=== PATIENT | female | born 1965 | race Two or more races ===

== ENCOUNTER 2025-01-09 10:04 | Emergency (ER) | payer MEDICAID ==
[~2025-01-09] VITALS: Ht 162.6 cm; Wt 77.0 kg
[2025-01-09 10:06] VITALS: BP 162/96
--- NOTE | 2025-01-09 10:12 | Physician Documentation ---
History of Present Illness ~ Chief Complaint: Medical Clearance Stated Complaint: ASTHMA Time Seen by MD: 10:11 OK to notify your PCP?: Yes Source: patient, RN/MD, RN notes reviewed, old records Mode of Arrival: POV Exam Limitations: no limitations HPI 59 year old female with history of asthma seen in bed 18 presents to the emergency room requesting medical clearance for her job. She states that she was sent by [facility] for a physical exam for a job requesting a test for flu, COVID and rsv. She states that she has a history of asthma but it is well managed as she has inhalers at home. She states that she does wheeze at baseline and she is a chronic smoker. Patient denies any other associated symptoms at this time. Patient denies any other alleviating or exacerbating factors. Medication Reconciliation Allergies: Coded Allergies: No Known Allergies (Unverified , 01/09/25) Scheduled Budesonide/Formoterol Fumarate (Symbicort 160-4.5 Mcg Inhaler), 2 PUFFS INH Q12H Dexamethasone* (Decadron*), 1 TAB PO DAILY Scheduled PRN albuterol inhaler (Pro-Air Inhaler), 2 PUFFS INH Q4HPRN PRN for wheezing Past Medical History Past Medical History: Asthma Past Surgical History: orthopedic surgeries Smoking Status: Current every day smoker Alcohol Use: None Drug Use: none Review of Systems All Other Systems at this time: Reviewed and Negative ROS As stated above in the HPI, otherwise all systems are reviewed and negative. Physical Exam Vital Signs: RN Vital Signs have been reviewed: Yes, Temperature: 98.2, Source: Oral, Heart Rate: 79, Respiratory Rate: 16, BP: 162/96, Pulse Oximetry: 99, Weight: 77.000 Oxygen Flow Rate: 0 Pulse Oximetry Reflects: adequate oxygenation Physical Exam General: The patient is well developed, well nourished, nontoxic appearing and is in no acute distress. Skin: [place], warm and dry with no rashes. HEENT: Head was normocephalic and atraumatic. Eyes - pupils equal, round, reactive to light and accommodation. Extraocular movements were intact. Conjunctivae were nonicteric. Ears - bilateral tympanic membranes were normal. The mouth and oropharynx were clear with moist mucous membranes. There were no pharyngeal exudates or erythema. Neck: Supple and nontender. There was no jugular venous distention, lymphadenopathy, thyromegaly or masses. Chest: Inspiatory and expiatory wheeze. No accessory muscle use. No dullness to percussion. Heart: Rate regular and rhythmic. S1, S2. No murmurs. Palpation of the chest wall was normal. No rubs or thrills. Abdomen: Soft, nontender and nondistended. Positive bowel sounds. No guarding or rebound. No hepatosplenomegaly or palpable masses. Extremities: No cyanosis, clubbing or edema. The patient moves all extremities. Pulses were equal and symmetric. Neurologic: Cranial nerves II-XII were intact. Sensation was intact to light touch throughout. Motor strength was 5/5 in all four extremities. Deep tendon reflexes were intact in both upper and lower extremities. Psychologic: The patient was oriented to person, place and time. The patient demonstrated appropriate judgement and insight. Progress Progress Note 1055: Morelia vanegas professional was spoken to at this time regarding the patients visit today and she stated that the [facility] has no policy for needing a COVID, flu, or RSV test prior to starting work. Results/Orders Reviewed/noted all lab results: Yes Results/Orders Orders - SHEMAR MCCLAIN MD Svn Treatment (01/09/25 11:17) Completed Orders - SHEMAR MCCLAIN MD Dexamethasone Tablet (Decadron Tablet) (01/09/25 11:20) Ipratropium/Albuterol Nebule (Ipratrop/A (01/09/25 11:20) Vital Signs 01/09/25 01/09/25 01/09/25 01/09/25 10:06 11:32 11:45 11:51 Temp 98.2 98.2 Pulse 79 79 79 Resp 16 18 16 B/P (MAP) 162/96 Pulse Ox 99 97 100 O2 Delivery Room Air* Room Air* O2 Flow Rate 0 0 0 FiO2 21 21 Re-Evaluation Re-Evaluation : Re-Evaluation: Improved Progress This patient has a known history of asthma. She was wheezing. She came from a local clinic for medical clearance and additional laboratory work studies which none were indicated. After patient was treated for asthma patient was returned to her clinic to complete her medical clearance. Patient has no additional medical issues other than asthma. Pulse oximetry monitor interpretation shows normal oxygenation at 97% room air, normal, my interpretation. Medical Decision Making Additional info obtained from: old records Differential Dx:Considerations: Include: Medically stable, Other Departure Time of Disposition: 10:59 Disposition: 01 HOME / SELF CARE / HOMELESS Impression: Primary Impression: Asthma exacerbation Qualified Codes: J45.41 - Moderate persistent asthma with (acute) exacerbation Condition: Stable Discharge Instructions: Medical Screening Exam Additional Instructions: Patient is medically cleared of infection as there are no indication for any tests. Please return to [facility] to finish your documentation for work and follow up with Dr. Mitchell. Referrals: NO PRIMARY CARE PROVIDER (PCP) Prescriptions Budesonide/Formoterol Fumarate (Symbicort 160-4.5 Mcg Inhaler) 160 Mcg-4.5 Mcg/Actuation Hfa.aer.ad 2 PUFFS INH Q12H for 30 Days, #10.2 GM 1 Refill Prov: SHEMAR MCCLAIN MD 01/09/25 albuterol inhaler (Pro-Air Inhaler) 8.5 Gm Inhaler 2 PUFFS INH Q4HPRN PRN for wheezing for 30 Days, #18 GM Prov: SHEMAR MCCLAIN MD 01/09/25 Dexamethasone* (Decadron*) 4 Mg Tablet 1 TAB PO DAILY for 6 Days, #6 TAB Prov: SHEMAR MCCLAIN MD 01/09/25 Education Educated: Patient Educated regarding: diagnosis, treatment, prognosis Signature Scribe Signature: Scribed for Shemar Mcclain MD by Yudelka Richardson . 01/09/25 11:00 Attestation: The note accurately reflects work and decisions made by me.Shemar Mcclain MD 01/09/25 10:12 SHEMAR MCCLAIN MD Jan 09, 2025 10:12 YUDELKA HAUSER Jan 09, 2025 11:02
[2025-01-09] MEDS: dexamethasone 4mg tablet PO ONE (11:21)
[2025-01-09] MEDS ORDERED: BUDE10.2 INH (11:25)
[2025-01-09] MEDS ORDERED: ALBU8HFA INH (11:25)
[2025-01-09] MEDS ORDERED: DEC4T PO (11:25)
[2025-01-09 11:32] VITALS: TEMP 98.2
[2025-01-09] MEDS: ipratropium/albuterol 3ml nebule NEB ONE (11:44)
[2025-01-09 11:45] VITALS: PULSE 79; RESP 18; O2SAT 97
[2025-01-09 11:51] VITALS: PULSE 79; RESP 16; O2SAT 100
== END 2025-01-09 12:39 | disposition home or self-care (01) ==
LOC: ER 10:05
DX: J45.901 Unspecified asthma with (acute) exacerbation (principal); F17.200 Nicotine dependence, unspecified, uncomplicated; Z79.899 Other long term (current) drug therapy
CPT/HCPCS: 94640; 94760; 99283